=== PATIENT | male | born 2000 | race Caucasian/White ===

== ENCOUNTER 2018-07-10 16:02 | Emergency (ER) | payer BC ==
[2018-07-10 16:11] VITALS: TEMP 98.3
--- NOTE | 2018-07-10 16:25 | RAD ---
EXAM DESCRIPTION: Wrist,Left 2 Views CLINICAL HISTORY: 18 years ,Male fall with pain COMPARISON: None. TECHNIQUE: LEFT wrist, two view FINDINGS: No acute fractures or dislocations are identified. No osseous destructive lesions. IMPRESSION: No acute fractures are identified. If symptoms persist, followup is recommended in 7-10 days. Electronically signed by: Keely Álvarez MD 07/10/2018 4:24 PM [facility]
[2018-07-10] MEDS ORDERED: SULFA/TRIMETH 800/160 (DS) TAB 1 EA TAB PO ONE (16:57)
--- NOTE | 2018-07-10 17:12 | ED.PDOC ---
History of Present Illness - General Chief Complaint: Laceration Stated Complaint: laceration, arm swelling Time Seen by Provider: 07/10/18 16:06 Source: patient Exam Limitations: no limitations - History of Present Illness Initial Comments: The patient is a 18-year-old male presented to emergency room secondary to a fall at home. He tripped going down a step and landed with his left arm outstretched. When he fell he sustained a cut over the distal third of theleft forearm. Laceration is three quarters of an inch in length and is over the dorsal aspect of the forearm distal third ulnar side. He does appear to be neurovascularly intact in tendon function appears to be intact as well. There is however a significant hematoma formed over the area approximately 1 inch in diameter. There is a slight muscle belly cut. Wound is hemostatic by time he arrives here. No other injuries. risk and benefits of repair were explained and patient agreed to proceed. The wound is cleaned with hydrogen peroxide and explored showing no evidence of any foreign body. One percent Xylocaine with epinephrine was used 2 cc as a local anesthetic. 3 simple sutures of 3-0 Ethilon were used for reapproximation. Pressure dressing was applied over the hematoma site. Estimated blood loss here after arrival was probably less than 5 cc. Timing/Duration: momentarily Severity: moderate Improving Factors: nothing Worsening Factors: nothing Associated Symptoms: denies symptoms Allergies/Adverse Reactions: Allergies NO KNOWN ALLERGY Allergy (Verified 07/10/18 16:11) Home Medications: Ambulatory Orders Sulfa/Trimeth 800/160 (Ds) Tab [Bactrim DS Tab] 1 ea PO DAILY #5 tab 07/10/18 Review of Systems - Review of Systems Constitutional: States: no symptoms reported EENTM: States: no symptoms reported Respiratory: States: no symptoms reported Cardiology: States: no symptoms reported Gastrointestinal/Abdominal: States: no symptoms reported Genitourinary: States: no symptoms reported Musculoskeletal: States: see HPI Skin: States: see HPI Neurological: States: no symptoms reported Endocrine: States: no symptoms reported All other Systems: No Change from Baseline Past Medical History (General) - Patient Medical History Hx Seizures: No Hx Stroke: No Hx Dementia: No Hx Asthma: No Hx of COPD: No Hx Cardiac Disorders: No Hx Congestive Heart Failure: No Hx Pacemaker: No Hx Hypertension: No Hx Thyroid Disease: No Hx Diabetes: No Hx Gastroesophageal Reflux: No Hx Renal Disease: No Hx Cancer: No Hx of HIV: No Hx Hepatitis C: No Hx MRSA: No Surgical History: other - Vaccination History Hx Tetanus, Diphtheria Vaccination: - unknown Hx Influenza Vaccination: No Hx Pneumococcal Vaccination: No - Social History Hx Tobacco Use: Yes Hx Chewing Tobacco Use: Yes Hx Alcohol Use: No Hx Substance Use: No Hx Substance Use Treatment: No Hx Depression: No Hx Physical Abuse: No Hx Emotional Abuse: No Hx Suspected Abuse: No Family Medical History - Family History Mother Family History: Unknown Physical Exam - Physical Exam General Appearance: Alert, Anxious Eye Exam: bilateral normal Ears, Nose, Throat: hearing grossly normal Neck: non-tender, full range of motion Respiratory: lungs clear, normal breath sounds, no respiratory distress, no accessory muscle use Cardiovascular/Chest: normal peripheral pulses, regular rate, rhythm, no edema Peripheral Pulses: radial,right: 2+, radial,left: 2+ Rectal Exam: deferred Extremity: normal range of motion, no pedal edema, normal capillary refill, other - see history of present illness Neurologic: program director II-XII nml as tested, alert, normal mood/affect, oriented x 3 Skin Exam: normal color - laceration as above. See history of present illness. Comments: Vital Signs - 24 hr 07/10/18 16:04 Temperature 98.3 F Pulse Rate [ 66 pulse ox] Respiratory 18 Rate Blood Pressure 142/84 [Right Arm] O2 Sat by Pulse 100 Oximetry Progress - Progress Progress: 07/10/18 17:13 the patient is a 18-year-old male presenting after a fall. He sustained an accidental laceration to the distal left forearm. This was repaired with 3 simple sutures of 3-0 Ethilon which will need to be removed in about 10 days. He was given a dose of Bactrim here and will be placed on Bactrim daily for the next 5 days. He needs to avoid alcohol intake with this medication. He also needs to take his medication with some food. Monitor for any evidence of infection. Keep routine follow-up with primary care doctor otherwise. X-rays of the wrist show no evidence of any fracture or dislocation. ER warnings were given for any worsening. Departure - Departure Clinical Impression: Accidental laceration Disposition: Discharge to Home or Self Care Condition: Fair Departure Forms: ED Discharge - Pt. Copy, Patient Portal Self Enrollment Instructions: DI for Laceration Repair, DI for Laceration Repair -- Simple Diet: regular diet Activity: increase activity as tolerated Prescriptions: Sulfa/Trimeth 800/160 (Ds) Tab [Bactrim DS Tab] 1 ea PO DAILY #5 tab Home Medications: Ambulatory Orders Sulfa/Trimeth 800/160 (Ds) Tab [Bactrim DS Tab] 1 ea PO DAILY #5 tab 07/10/18 Additional Instructions: the patient is a 18-year-old male presenting after a fall. He sustained an accidental laceration to the distal left forearm. This was repaired with 3 simple sutures of 3-0 Ethilon which will need to be removed in about 10 days. He was given a dose of Bactrim here and will be placed on Bactrim daily for the next 5 days. He needs to avoid alcohol intake with this medication. He also needs to take his medication with some food. Monitor for any evidence of infection. Keep routine follow-up with primary care doctor otherwise. X-rays of the wrist show no evidence of any fracture or dislocation. ER warnings were given for any worsening.
[2018-07-10 17:23] VITALS: BP 126/93; O2SAT 97
== END 2018-07-10 17:24 | disposition home or self-care (01) ==
LOC: ER 16:02
DX: S51.812A Laceration without foreign body of left forearm, initial encounter (principal); W01.0XXA Fall on same level from slipping, tripping and stumbling without subsequent striking against object, initial encounter; Y92.009 Unspecified place in unspecified non-institutional (private) residence as the place of occurrence of the external cause; Z87.891 Personal history of nicotine dependence

== ENCOUNTER 2020-09-05 13:00 | Emergency (ER) | payer SELFPAY ==
[2020-09-05] MEDS ORDERED: TETANUS,DIPHTHERIA,PERTUSSIS 1 EA SYG IM ONE (13:22)
--- NOTE | 2020-09-05 13:22 | ED.PDOC ---
History of Present Illness - General Time Seen by Provider: 09/05/20 13:16 - History of Present Illness Initial Comments: WAS BITTEN BY DOG ABOUT 8 HOURS AGO. IT WAS PROVOKED. HIS DOG. BITE WAS ON UPPER RIGHT LIP, DENIES OTHER INJURY Allergies/Adverse Reactions: Allergies NO KNOWN ALLERGY Allergy (Verified 07/10/18 16:11) Home Medications: Ambulatory Orders Sulfa/Trimeth 800/160 (Ds) Tab [Bactrim DS Tab] 1 ea PO DAILY #5 tab 07/10/18 Amoxicillin & Pot Clavulanate [Augmentin Tab] 875 mg PO BID #14 tab 09/05/20 Review of Systems - Review of Systems Constitutional: States: no symptoms reported EENTM: States: see HPI Respiratory: States: no symptoms reported Cardiology: States: no symptoms reported Gastrointestinal/Abdominal: States: no symptoms reported Genitourinary: States: no symptoms reported Past Medical History (General) - Patient Medical History Hx Seizures: No Hx Stroke: No Hx Dementia: No Hx Asthma: No Hx of COPD: No Hx Cardiac Disorders: No Hx Congestive Heart Failure: No Hx Pacemaker: No Hx Hypertension: No Hx Thyroid Disease: No Hx Diabetes: No Hx Gastroesophageal Reflux: No Hx Renal Disease: No Hx Cancer: No Hx of HIV: No Hx Hepatitis C: No Hx MRSA: No - Vaccination History Hx Tetanus, Diphtheria Vaccination: - unknown Hx Influenza Vaccination: No Hx Pneumococcal Vaccination: No - Social History Hx Tobacco Use: Yes Hx Chewing Tobacco Use: Yes Hx Alcohol Use: No Hx Substance Use: No Hx Substance Use Treatment: No Hx Depression: No Hx Physical Abuse: No Hx Emotional Abuse: No Hx Suspected Abuse: No Family Medical History - Family History Mother Family History: Unknown Physical Exam - Physical Exam General Appearance: Alert, Well Developed, Well Groomed, Well Hydrated, Well Nourished Ears, Nose, Throat: other - TWO PUNCTURE WOUNDS TO THE LIP, SLIGHT INVOLVEMENT OF VERMILIAN BORDER, THIS WOULD IS 99% MUCOSAL AND THER IS NO SIGNIFICANT MALALIGNMENT OF TISSUE, I DO NOT BELIEVE THAT SUTURING WILL MAKE THIS WOUND HEAL BETTER OR FASTER BASED ON CURRENT APPEARANCE. Respiratory: no respiratory distress, no accessory muscle use Neurologic: alert, normal mood/affect, oriented x 3 Skin Exam: normal color, warm/dry Departure - Departure Clinical Impression: Dog bite Qualifiers: Encounter type: initial encounter Qualified Code(s): W54.0XXA - Bitten by dog, initial encounter Time of Disposition: 13:20 Disposition: Discharge to Home or Self Care Condition: Good Instructions: Animal Bites ED Prescriptions: Amoxicillin & Pot Clavulanate [Augmentin Tab] 875 mg PO BID #14 tab Home Medications: Ambulatory Orders Sulfa/Trimeth 800/160 (Ds) Tab [Bactrim DS Tab] 1 ea PO DAILY #5 tab 07/10/18 Amoxicillin & Pot Clavulanate [Augmentin Tab] 875 mg PO BID #14 tab 09/05/20
[2020-09-05 13:34] VITALS: BP 131/87; TEMP 97.6; O2SAT 98
== END 2020-09-05 13:44 | disposition home or self-care (01) ==
LOC: ER 13:00
DX: S01.551A Open bite of lip, initial encounter (principal); W54.0XXA Bitten by dog, initial encounter; F17.200 Nicotine dependence, unspecified, uncomplicated; Y92.9 Unspecified place or not applicable